=== PATIENT | male | born 1980 | race Caucasian/White ===

== ENCOUNTER → 2020-10-02 16:20 | Outpatient (CLI) | payer OTHER, SELFPAY ==
--- NOTE | ~2020-10-02 | XR_ITS ---
XR knee LT min 4V DATE: 10/02/2020 16:45 INDICATION: Left knee pain TECHNIQUE: [place] and standing AP, PA and lateral views COMPARISON: None FINDINGS: No fracture or dislocation or joint effusion. No periosteal reaction or bone destruction. N o radiopaque intra-articular loose body or chondrocalcinosis. Joint spaces are well preserved. IMPRESSION: Normal examination Reviewed, dictated and finalized at location A. IMPRESSION: Normal examination
== END ==
PROVIDERS: PCP Family Medicine; Visit Provider Physician Assistant
DX: M25.562 Pain in left knee (principal)
CPT/HCPCS: 73564

== ENCOUNTER 2021-11-10 08:01 | Emergency (ER) | payer OTHER, SELFPAY ==
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
[2021-11-10 08:00] VITALS: BP 137/77; PULSE 64; RESP 18; TEMP 36.8; O2SAT 95
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
[2021-11-10] MEDS: ACETAMINOPHEN 500 MG TABLET 1000 MG PO (08:41)
[2021-11-10 10:06] VITALS: RESP 16
== END 2021-11-10 10:08 | disposition home or self-care (01) ==
PROVIDERS: Emergency Provider Emergency Medicine
DX: S46.911A Strain of unspecified muscle, fascia and tendon at shoulder and upper arm level, right arm, initial encounter (principal); M16.12 Unilateral primary osteoarthritis, left hip; V43.52XA Car driver injured in collision with other type car in traffic accident, initial encounter
CPT/HCPCS: 71046; 73030; 73502; 99284; A9270

== ENCOUNTER 2024-02-23 08:17 | Outpatient (CLI) | payer OTHER, SELFPAY ==
[2024-02-23 13:50] LABS: Basophils Percent Auto 0.8 % (0.2-1.2); Eosinophils Absolute Auto 0.1 K/mm3 (0-0.3); Eosinophils Percent Auto 1.1 % (0-4.4); Hematocrit 44.5 % (42.0-52.0); Hemoglobin 14.9 g/dL (14.0-18.0); Immature Granulocyte Absolute 0.02 K/mm3 (0.00-0.031); Immature Granulocyte Percent A 0.4 % (0-0.5); Lymphocytes Absolute Auto 1.74 K/mm3 (0.9-3.2); Lymphocytes Percent Auto 33.3 % (18.3-44.2); Mean Corpuscular HGB Conc 33.5 g/dl (32-36); Mean Corpuscular Hemoglobin 32.6 pg (26-34); Mean Corpuscular Volume 97.4 fl (80-100); Mean Platelet Volume 9.9 fl (7.4-10.4); Monocytes Absolute Auto 0.5 K/mm3 (0.1-0.6); Monocytes Percent Auto 9.6 % (2.6-8.5); Neutrophils Absolute Auto 2.9 K/mm3 (1.3-6.7); Neutrophils Percent Auto 54.8 % (45.5-73.1); Platelet Count Result 205 k/mm3 (150-375); Red Blood Count 4.57 M/mm3 (4.6-6.20); Red Cell Distribution Width 11.8 % (11.5-14.5); White Blood Count 5.2 K/mm3 (4.5-10.0)
[2024-02-23 13:55] LABS: Anion Gap 3 mmol/L (4-12); Blood Urea Nitrogen 19 mg/dL (9-20); Calcium 9.5 mg/dL (8.4-10.2); Carbon Dioxide 27 mmol/L (22-30); Chloride 109 mmol/L (98-107); Cholesterol 306 mg/dL (0-200); Estimated Glomerular Filt Rate > 60; Glucose 94 mg/dL (65-110); HDL Direct 58 mg/dL; Sodium 139 mmol/L (137-145); Triglycerides 109 mg/dL (<150)
[2024-02-23 14:06] LABS: LDL Cholesterol Direct 197 mg/dL
[2024-02-28 10:48] LABS: Testosterone Free 91.5 pg/mL (46.0-224.0)
[2024-03-01 08:23] LABS: Testosterone Total 399 ng/dL (250-1100)
== END 2024-02-23 08:18 | disposition home or self-care (01) ==
LOC: ANHGOSHLAB 08:18
PROVIDERS: PCP Nurse Practitioner Family; Visit Provider Nurse Practitioner Family
DX: G47.00 Insomnia, unspecified (principal); F41.9 Anxiety disorder, unspecified; N52.9 Male erectile dysfunction, unspecified; Z68.29 Body mass index [BMI] 29.0-29.9, adult
CPT/HCPCS: 36415; 80048; 80061; 84402; 84403; 84443; 85025

== ENCOUNTER 2024-03-27 19:42 | Emergency (ER) | payer OTHER, SELFPAY ==
[2024-03-27 19:44] VITALS: BP 164/99; PULSE 42; RESP 15; TEMP 36.1; O2SAT 99
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
[2024-03-27] MEDS: ONDANSETRON HCL ODT 4 MG TABLET PO (20:42)
[2024-03-27] MEDS: LIDOCAINE 1% LOCAL INJ 10 ML VIAL INFILTRATE (20:43)
== END 2024-03-27 21:32 | disposition home or self-care (01) ==
PROVIDERS: Emergency Provider Emergency Medicine; PCP Nurse Practitioner Family
DX: S61.211A Laceration without foreign body of left index finger without damage to nail, initial encounter (principal); W26.0XXA Contact with knife, initial encounter
CPT/HCPCS: 12002; 99283; A9270; J2003

== ENCOUNTER 2024-05-18 11:11 | Emergency (ER) | payer OTHER, SELFPAY ==
--- NOTE | ~2024-05-18 | CT_ITS ---
CT abdomen pelvis w con Ordering provider: Tesfaye Coles MD History: 43 years Male with . Left CVA tenderness . Comparison: None. Technique: CT abdomen and pelvis with IV and without oral contrast. Automated exposure control and it erative reconstruction technique were employed. The dose-length product was 761.57 mGy-cm. 100 mL Omn ipaque 350 was given IV. Findings: VISUALIZED LOWER CHEST: Dependent atelectatic changes. UPPER ABDOMINAL ORGANS: Liver: Fat infiltration. Gallbladder: Normal. Spleen: Normal. Stomach/duodenum: Normal. Pancreas: Normal. Adrenals: Normal. Kidneys: Normal. PELVIC ORGANS: The bladder is slightly underfilled with thickened wall. Evaluation for cystitis advis ed.. BOWEL AND MESENTERY: Colon: No evidence of diverticulitis. Normal appendix. Small Bowel: Slightly thickened wall of the jejunum is seen which may indicate enteritis. Clinical co rrelation advised. No obstruction. Peritoneum/mesentery: No free air or free fluid. No mesenteric lymphadenopathy. RETROPERITONEUM: Mild atheromatous disease of the abdominal aorta. No retroperitoneal lymphadenopat hy. MUSCULOSKELETAL: Superficial soft tissues: Bilateral small fat-containing inguinal hernias. The superficial soft tissu es are normal. Bones: Normal spine. IMPRESSION: 1. No evidence of appendicitis, diverticulitis or intestinal obstruction. 2. Slightly thickened jejunal loops which may indicate enteritis. Clinical correlation advised. 3. Bilateral fat-containing small inguinal hernias. Reviewed, dictated and finalized at location A. IATIVE CARE NURSE IMPRESSION: 1. No evidence of appendicitis, diverticulitis or intestinal obstruction. 2. Slightly thickened jejunal loops which may indicate enteritis. Clinical cor relation advised. 3. Bilateral fat-containing small inguinal hernias.
--- NOTE | ~2024-05-18 | CT_ITS ---
CT thoracic spine wo con Ordering provider: Tesfaye Coles MD History: . Paraspinal thoracic pain . Comparison: None. Technique: CT thoracic spine without contrast. Automated exposure control and iterative reconstructi on technique were employed. The dose-length product was 1169.39 mGy-cm. FINDINGS: VERTEBRAE: Normal height and alignment. No subluxation or visible acute fracture. Mild Degenerative c hanges of the spine. DISC SPACES: Well maintained. PARASPINOUS SOFT TISSUES: Normal. Small blebs are seen in the lungs. IMPRESSION: No acute osseous abnormality of the thoracic spine. Reviewed, dictated and finalized at location A. INING MANAGER
--- OUTSIDE RECORDS SUMMARY | 2024-05-18 11:13 | XMS_ITS | Clinical Summary ---
Author Organization [facility] Address [address] [place] [address] Care Team Providers Care Director Of Product Management Name Role Phone Lazaro Miller MD Primary Care Provider [phone] Allergies Active Allergy Reactions Criticality Noted Date Comments Amoxicillin Penicillins Medications oxyCODONE (ROXICODONE) 5 mg immediate release tabletIndicatio ns:Pain Take 1 tablet (5 mg total) by mouth every 4 (four) hours as needed for pain (not controlled by tylenol/ibuprof en) 12 tablet 2 Active Active Problems Problem Noted Date Diagnosed Date Laceration of left index finger 12/27/2021 Overview (12/27/2021): Added automatically from request for surgery [id number] Benign hypertension 10/13/2014 Overview (06/16/2016): HTN (hypertension), benign Bradycardia 10/13/2014 Overview (06/16/2016): Bradycardia Palpitations 10/13/2014 Overview (06/16/2016): Palpitations Syncope 10/13/2014 Overview (06/16/2016): Syncope Family History Medical History Relation Name Comments Heart disease Maternal Grandmother Heart disease; Diabetes Mother Diabetes mellit us; Prostate cancer Paternal Grandfather Canc er, prostate; Hypertension Paternal Grandmother Hyperte nsion; Stroke Paternal Grandmother Stroke; Relation Name Status Comments Maternal Grandmother Mother Paternal Grandfather Paternal Grandmother Social History Tobacco Use Types Packs/Day Years Used Date Smoking Tobacco: Former Cigarettes Q uit: 2012 Tobacco Cessation:Counseling Given: Not Answered Alcohol Use Standard Drinks/Week Comments Yes 0 (1 standard drink = 0.6 oz pur e alcohol) AUDIT-C Answer Date Recorded Q1: How often do you have a drink containing alc ohol? 2-3 times a week 12/28/2021 Q2: How many drinks containi ng alcohol do you have on a typical day when you are drinking? 5 or 6 12/28/2021 Q3: How often do you have si x or more drinks on one occasion? 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 Gender Identity Not on file Sexual Orientation Not on file Obstetrics History Last Filed Vital Signs Vital Sign Reading Time Taken Comments Blood Pressure 137/89 12/28/2021 12:00 PM CDT Pulse 42 12/28/2021 12:00 PM CDT Temperature 36.4 C (97.5 F) 12/28/2021 12:00 PM CDT Respiratory Rate 12 12/28/2021 12:00 PM CDT Oxygen Saturation 94% 12/28/2021 12:00 PM CDT Inhaled Oxygen Concentration - - Weight 99.8 kg (220 lb) 12/28/2021 9:19 AM CDT Height 182.9 cm (6') 12/28/2021 9:19 AM CDT Body Mass Index 29.84 12/28/2021 9:19 AM CDT Plan of Treatment Health Maintenance Due Date Last Done Comments Depression Screening 1981 Hepatitis C Screening 1981 DTaP/Tdap/Td Vaccine (1 - Tdap) 1992 Varicella Vaccines (1 of 2 - 13+ 2-dose series) 1994 Hepatitis B Screening 11/22/1999 Regular Well Visit/Exam 18-64 11/22/1999 Influenza Vaccine (#1) 2023 HPV Vaccines Aged Out No longer eligi ble based on patient's age to complete this topic Pneumococcal vaccine <65 Aged Out No longer eligible based on patient's age to complete this topic Insurance [employer] Care Teams Director Of Product Management Relationship Specialty Start Date End Date Lazaro Miller MD [address] [place] [address] PCP - General 10/22/14
--- OUTSIDE RECORDS SUMMARY | 2024-05-18 11:13 | XMS_ITS | Referral Summary ---
Author Organization [facility] Address [address] [place] [address] Care Team Providers Care High School English Teacher Name Role Phone Lazaro Miller MD Primary Care Provider [phone] Allergies Active Allergy Reactions Criticality Noted Date [...] (12/27/2021): Added automatically from request for surgery [id number] Benign hypertension 10/13/2014 Overview (06/16/2016): HTN (hypertension), benign Bradycardia 10/13/2014 Overview (06/16/2016): Bradycardia Palpitations 10/13/2014 Overview (06/16/2016): Palpitations Syncope 10/13/2014 Overview (06/16/2016): Syncope Social History Tobacco Use Types Packs/Day Years Used Date Smoking Tobacco: Former Cigarettes Q uit: 2011 Tobacco Cessation:Counseling Given: Not Answered Alcohol Use [...] on file 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 Gender Identity Not on file Sexual Orientation Not on file Last Filed Vital Signs Vital Sign Reading [...] 12/28/2021 9:19 AM CDT Plan of Treatment Not on file Insurance [facility] [employer] H[employer]/PPO Address: [facility] [address] [place] [address] [facility] [employer] H[employer]/PPO Address: [address] [address] [facility] [employer] H[employer]O Address: [address] [address] Care Teams High School English Teacher Relationship Specialty Start Date End Date Lazaro Miller MD [address] [place] [address] PCP - General 10/22/14
--- OUTSIDE RECORDS SUMMARY | 2024-05-18 11:13 | XMS_ITS | Clinical Summary ---
Author Organization [facility] Address [facility] [place] [address] Care Team Providers Care Clinical Practice Consultant Name Role Phone Lake Miller MD Primary Care Provider Allergies Active Allergy Reactions Criticality Noted Date Comments Penicillins Rash Low 12/25/2021 Medications ALPRAZolam (XANAX) 1 MG tablet TAKE 1/2 OR 1 TABLET BY MOUTH EVERY NIGHT AT BEDTIME 2 Active sertraline (ZOLOFT) 50 MG tablet Take 50 mg by mouth nightly at bedtime. at bedtime 2 Active traZODone (DESYREL) 50 MG tablet Take 50 mg by mouth nightly at bedtime. 2 Active methylPREDNISol one, SIMRAN, (MEDROL DOSEPAK) 4 MG tablet Follow package directions 1 each 2 Active montelukast (SINGULAIR) 10 MG tablet Take 1 tablet (10 mg total) by mouth nightly at bedtime. 30 tablet 2 Active fexofenadine (NAN ALLERGY) 180 MG tablet Take 1 tablet (180 mg total) by mouth daily. 30 tablet 2 Active Social History Tobacco Use Types Packs/Day Years Used Date Smoking Tobacco: Never Smokeless Tobacco: Never Sex and Gender Information Value Date Recorded Sex Assigned at Not on file Legal Sex Male 7:52 PM CDT Gender Identity Not on file Sexual Orientation Not on file Last Filed Vital Signs Vital Sign Reading Time Taken Comments Blood Pressure 155/65 12/25/2021 2:21 PM CDT Pulse 52 12/25/2021 2:23 PM CDT Temperature 36.5 C (97.7 F) 12/25/2021 12:08 PM CDT Respiratory Rate 18 12/25/2021 2:23 PM CDT Oxygen Saturation 95% 12/25/2021 2:41 PM CDT Inhaled Oxygen Concentration - - Weight 99.8 kg (220 lb) 12/25/2021 12:08 PM CDT Height 182.9 cm (6') 12/25/2021 12:08 PM CDT Body Mass Index 29.84 12/25/2021 12:08 PM CDT Plan of Treatment Health Maintenance Due Date Last Done Comments Annual Physical 1984 Hepatitis C 11/22/1999 DTaP, Tdap and Td Vaccines ( 1 - Tdap) 2000 Hepatitis B Vaccines (1 of 3 - 19+ 3-dose series) 2000 COVID-19 Vaccine (2023-2 5 season) 2023 Influenza Adult (#1) 2023 HPV Vaccines Aged Out No longer eligi ble based on patient's age to complete this topic Meningococcal B Vaccine Aged Out No l onger eligible based on patient's age to complete this topic Meningococcal Vaccine Aged Out No erica ghislaine eligible based on patient's age to complete this topic Pneumococcal Vaccine: Pediat rics (0 to 5 Years) and At-Risk Patients (6 to 64 Years) Aged Out No longer eligible b ased on patient's age to complete this topic RSV Immunizations Under 20 Months Aged Out No longer eligible based on patient's age to complete this topic Insurance Care Teams Clinical Practice Consultant Relationship Specialty Start Date End Date Lake Miller MD [address] [place] [address] PCP - General FAMILY PRACTICE 12/25/21
[2024-05-18 11:15] VITALS: BP 134/81; PULSE 50; RESP 16; TEMP 36.1; O2SAT 98
--- OUTSIDE RECORDS SUMMARY | 2024-05-18 11:34 | XMS_ITS | Clinical Summary ---
Author Organization [facility] Address [facility] [place] [address] Care Team Providers Care Aircraft Cleaning Supervisor Name Role Phone Lake Miller MD Primary Care Provider [phone] Allergies Active Allergy Reactions Criticality Noted Date [...] to complete this topic Insurance Care Teams Aircraft Cleaning Supervisor Relationship Specialty Start Date End Date Lake Miller MD [address] [place] [address] PCP - General FAMILY PRACTICE 12/25/21
--- OUTSIDE RECORDS SUMMARY | 2024-05-18 11:34 | XMS_ITS | Referral Summary ---
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 [employer] [employer] [facility] HMO/PPO Address: [facility] [address] [place] [address] [employer] [facility] H[employer]/PPO Address: [address] [address] [employer] [facility] H[employer]/PPO Address: [address] [address] Care Teams Aircraft Parts Assembler Relationship Specialty Start Date End Date Lazaro Miller MD [address] [place] [address] PCP - General 10/22/14
--- OUTSIDE RECORDS SUMMARY | 2024-05-18 11:34 | XMS_ITS | Clinical Summary ---
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
--- NOTE | 2024-05-18 13:04 | ED.GENADULT ---
HPI - General Adult General Chief complaint: Back Pain/Injury Stated complaint: back pain Time Seen by Provider: 05/18/24 11:22 History of Present Illness HPI narrative: 43-year-old male presents to the emergency department for acute onset left CVA pain. Patient states he had had some shoulder pain earlier in the week but patient sneezed and had acute onset left CVA pain. States the pain is worsened with movement. Patient does have reproducible tenderness to his left paraspinal muscles. Patient denies any worsening of the pain with taking a deep breath. Related Data Home Medications ?Medication ?Instructions ?Recorded ?Confirmed ?Last Taken ?Type omeprazole 20 mg capsule,delayed 20 mg PO DAILY 10/02/20 04/01/24 Unknown History release Allergies Allergy/AdvReac Type Severity Reaction Status Date / Time amoxicillin Allergy Unknown rash Verified 05/18/24 11:27 penicillamine Allergy Unknown Skin Verified 05/18/24 11:27 Reaction Penicillins Allergy Unknown rash Verified 05/18/24 11:27 Review of Systems Review of Systems: All systems reviewed & are unremarkable except as noted in HPI and below PMFSH Past Medical History Medical History Right rotator cuff tendinitis Leg abscess Arthralgia of right acromioclavicular joint Family History Family History Father Hypertension Grandparent Hypertension Family history of cardiovascular disease Cerebrovascular accident Malignant neoplasm of prostate Other Diabetes mellitus Social History Social History Smoking status: Never smoker Smokeless tobacco user: chewing tobacco Second hand tobacco smoke exposure: No Alcohol intake: current Drinks per week: 6 Substance use type: does not use Lack of Transportation: No Lack of Food: Never True Current Housing: I Have Housing Concerned About Future Housing: No Difficulty Paying Gas/Electric Bills: No Difficulty Paying for Meds: No Currently Unemployed: No Difficulty w/ Childcare or Family Care: Decline to Answer Exam Narrative: APPEARANCE: Well appearing, no pain, no distress, well-nourished. HEAD: normocephalic, atraumatic. EYES: PERRLA/EOMI, conjunctivae clear. NOSE: Normal no drainage EARS:TMS clear with good light reflex. THROAT: Pharynx clear, no exudate. NECK: Supple. No adenopathy, no masses. RESPIRATORY: Airway patent, respirations nonlabored. Clear to auscultation bilaterally, no rales, rhonchi, wheezing. CARDIOVASCULAR: Regular rate and rhythm without murmurs rubs or gallops. ABDOMINAL: Soft, nontender, nondistended, normal bowel sounds MUSCULOSKELETAL: Left-sided paraspinal muscle tenderness to palpation, left CVA tenderness to palpation and left upper quadrant tenderness to palpation. NEURO: Alert. Cranial nerves II through XII intact. Good gait. Good coordination SKIN: Warm, dry. Normal Color Course Vital Signs Vital signs: Vital Signs Temperature 97 F L 05/18/24 11:15 Pulse Rate 50 L 05/18/24 11:15 Respiratory Rate 16 05/18/24 11:15 Blood Pressure 134/81 05/18/24 11:15 Pulse Oximetry 98 05/18/24 11:15 Temperature 97 F L 05/18/24 11:15 Pulse Rate 52 L 05/18/24 16:08 Respiratory Rate 18 05/18/24 16:08 Blood Pressure 114/53 L 05/18/24 16:08 Pulse Oximetry 98 05/18/24 16:08 Medical Decision Making MDM Narrative Medical decision making narrative: 43-year-old male present to the emergency department for evaluation for left-sided back pain. Patient states the pain occurred while he was sneezing. Patient does have reproducible left paraspinal muscular tenderness to palpation but patient also does have some left-sided CVA tenderness. Patient is currently afebrile with no leukocytosis hemoglobin of 14.5. INR 1.1, patient has no acute abnormalities on his CMP including normal T bili AST ALT alk phos. Urine was negative for infection and negative for blood. CT abdomen pelvis showed possible enteritis but this does not correlate with the patient's symptoms. Thoracic spine showed no acute abnormality. Patient did feel improved with treatment. Patient was discharged home with naproxen, Flexeril and [place] for additional pain control. Patient and family were educated on reasons to return to the emergency department. All questions concerns were addressed. Differential Diagnosis Differential Diagnosis: Splenic injury, rib fracture, paraspinal muscle injury, thoracic spine injury Vital Signs Vital Signs: Vital Signs Temperature 97 F L 05/18/24 11:15 Pulse Rate 50 L 05/18/24 11:15 Respiratory Rate 16 05/18/24 11:15 Blood Pressure 134/81 05/18/24 11:15 Pulse Oximetry 98 05/18/24 11:15 Temperature 97 F L 05/18/24 11:15 Pulse Rate 52 L 05/18/24 16:08 Respiratory Rate 18 05/18/24 16:08 Blood Pressure 114/53 L 05/18/24 16:08 Pulse Oximetry 98 05/18/24 16:08 Lab Data Lab results reviewed: Yes I reviewed the patient's lab results. 05/18/24 13:15 05/18/24 13:15 Labs: Lab Results 05/18/24 05/18/24 Range/Units 13:15 13:33 WBC 5.9 (4.5-10.0) K/mm3 RBC 4.44 L (4.6-6.20) M/mm3 Hgb 14.5 (14.0-18.0) g/dL Hct 42.7 (42.0-52.0) % MCV 96.2 (80-100) fl MCH 32.7 (26-34) pg MCHC 34.0 (32-36) g/dl RDW 11.7 (11.5-14.5) % Plt Count 200 (150-375) k/mm3 MPV 9.5 (7.4-10.4) fl Immature Gran % (Auto) 0.3 (0-0.5) % Neut % (Auto) 58.9 (45.5-73.1) % Lymph % (Auto) 31.1 (18.3-44.2) % [place] % (Auto) 8.5 (2.6-8.5) % Eos % (Auto) 0.5 (0-4.4) % Baso % (Auto) 0.7 (0.2-1.2) % Lymph # (Auto) 1.82 (0.9-3.2) K/mm3 [place] # (Auto) 0.5 (0.1-0.6) K/mm3 Eos # (Auto) 0.0 (0-0.3) K/mm3 Baso # (Auto) 0.0 (0.0-0.1) K/mm3 Abs Immat Gran (auto) 0.02 (0.00-0.031) K/mm3 Absolute Neuts (auto) 3.5 (1.3-6.7) K/mm3 Absolute Nucleated RBC 0.000 (0.0-0.012) K/mm3 Nucleated RBC % 0.0 (0.0-0.2) % PT 14.1 (11.1-14.7) Seconds INR 1.1 APTT 27.4 (22.3-36.8) Seconds Sodium 140 (137-145) mmol/L Potassium 4.5 (3.4-5.0) mmol/L Chloride 106 (98-107) mmol/L Carbon Dioxide 24 (22-30) mmol/L Anion Gap 10 (4-12) mmol/L BUN 18 (9-20) mg/dL Creatinine 0.98 (0.7-1.3) mg/dL Estim Creat Clear Calc 110 ml/min Estimated GFR > 60 (59 - ) Glucose 109 (65-110) mg/dL Calcium 9.4 (8.4-10.2) mg/dL Total Bilirubin 0.5 (0.2-1.3) mg/dL AST 27 (17-59) U/L ALT 37 (6-50) U/L Alkaline Phosphatase 57 (38-126) U/L Total Protein 7.0 (6.3-8.2) g/dL Albumin 4.3 (3.5-5.1) g/dL Urine Color Yellow (Yellow) Urine Appearance Clear (Clear) Urine pH 6.5 (5.0-9.0) Ur Specific [place] 1.019 (1.001-1.035) Urine Protein Negative (Negative) mg/dL Urine Glucose (UA) Negative (Negative) mg/dL Urine Ketones Negative (Negative) mg/dL Ur Blood (Man) Negative (Negative) Urine Nitrate Negative (Negative) Urine Bilirubin Negative (Negative) Urine Urobilinogen 0.2 (<2.0) mg/dL Leukocyte Esterase Rfl Negative (Negative) MICHAEL/UL Imaging Data Radiologist's impression: Impressions Thoracic Spine CT 05/18/24 14:32 IMPRESSION: No acute osseous abnormality of the thoracic spine. Abdomen/Pelvis CT 05/18/24 14:41 IMPRESSION: 1. No evidence of appendicitis, diverticulitis or intestinal obstruction. 2. Slightly thickened jejunal loops which may indicate enteritis. Clinical correlation advised. 3. Bilateral fat-containing small inguinal hernias. Discharge Plan Discharge Clinical Impression: Back strain, Rib injury Patient Disposition: Home, Self-Care Condition: Stable Instructions: Antibiotic Form, Back Pain (ED) Additional Instructions: Naproxen for pain control as directed. Flexeril for muscle spasm. Moreland as needed for additional pain control. Have close follow-up with your primary care physician. If you have any worsening symptoms and please call or return to the emergency department. Patient Language: Togolese Prescriptions: New naproxen [Naprosyn] 500 mg tablet 500 mg PO BID 7 Days Qty: 14 0RF cyclobenzaprine 10 mg tablet 10 mg PO BID PRN (Reason: muscle spasm) Qty: 14 0RF hydrocodone-acetaminophen 5-325 mg tablet 1 tablet PO Q12H PRN (Reason: pain) 5 Days Qty: 10 0RF No Action alprazolam 1 mg tablet 1 mg PO QHS Qty: 30 1RF albuterol sulfate [Ventolin HFA] 90 mcg/actuation HFA aerosol inhaler 2 inh inhalation Q4H PRN (Reason: shortness of breath or wheezing) Qty: 6.7 1RF omeprazole 20 mg capsule,delayed release(DR/EC) 20 mg PO DAILY Drysol Dab-O-Matic 20 % solution 1 applic topical 2XW PRN (Reason: hyperhidrosis) Qty: 60 0RF azithromycin 250 mg tablet See Rx Instructions PO .COMPLEX Qty: 6 0RF Rx Instructions: For 250 mg dose pack: take 500 mg today (day 1), then 250 mg for 4 days (days 2-5) PO sertraline 50 mg tablet See Rx Instructions .ROUTE .COMPLEX Qty: 90 1RF Dose Instruction: TAKE 1 TABLET BY MOUTH EVERY NIGHT AT BEDTIME Rx Instructions: TAKE 1 TABLET BY MOUTH EVERY NIGHT AT BEDTIME tadalafil 2.5 mg tablet 2.5 mg PO DAILY PRN (Reason: sexual activity) Qty: 30 2RF Rx Instructions: do not use more than 1 dose per 24hrs trazodone 50 mg tablet 50 mg PO QHS Qty: 90 3RF Follow-up/Referrals: Sonya Gonzalez, EMPLOYMENT EVALUATOR/CASE MANAGER-C [Primary Care Provider] -
[2024-05-18] MEDS: CYCLOBENZAPRINE HCL 10 MG TABLET PO (13:14)
[2024-05-18] MEDS: HYDROmorphone HCL INJ (*CRX) 1 MG/ML SYR IV PUSH (13:14)
[2024-05-18 13:25] LABS: Basophils Percent Auto 0.7 % (0.2-1.2); Eosinophils Percent Auto 0.5 % (0-4.4); Hematocrit 42.7 % (42.0-52.0); Hemoglobin 14.5 g/dL (14.0-18.0); Immature Granulocyte Absolute 0.02 K/mm3 (0.00-0.031); Immature Granulocyte Percent A 0.3 % (0-0.5); Lymphocytes Absolute Auto 1.82 K/mm3 (0.9-3.2); Lymphocytes Percent Auto 31.1 % (18.3-44.2); Mean Corpuscular Hemoglobin 32.7 pg (26-34); Mean Corpuscular Volume 96.2 fl (80-100); Mean Platelet Volume 9.5 fl (7.4-10.4); Monocytes Absolute Auto 0.5 K/mm3 (0.1-0.6); Monocytes Percent Auto 8.5 % (2.6-8.5); Neutrophils Absolute Auto 3.5 K/mm3 (1.3-6.7); Neutrophils Percent Auto 58.9 % (45.5-73.1); Platelet Count Result 200 k/mm3 (150-375); Red Blood Count 4.44 M/mm3 (4.6-6.20); Red Cell Distribution Width 11.7 % (11.5-14.5); White Blood Count 5.9 K/mm3 (4.5-10.0)
[2024-05-18 13:38] LABS: Alanine Aminotransferase 37 U/L (6-50); Albumin Level 4.3 g/dL (3.5-5.1); Alkaline Phosphatase 57 U/L (38-126); Anion Gap 10 mmol/L (4-12); Aspartate Amino Transferase 27 U/L (17-59); Bilirubin,Total 0.5 mg/dL (0.2-1.3); Blood Urea Nitrogen 18 mg/dL (9-20); Calcium 9.4 mg/dL (8.4-10.2); Carbon Dioxide 24 mmol/L (22-30); Chloride 106 mmol/L (98-107); Estimated CRCL calculation 110 ml/min; Estimated Glomerular Filt Rate > 60; Glucose 109 mg/dL (65-110); Potassium 4.5 mmol/L (3.4-5.0); Sodium 140 mmol/L (137-145)
[2024-05-18 13:39] LABS: Add Urine Microscopic? NO; Appearance Urine Clear (Clear); Bilirubin Urine Negative (Negative); Blood Urine Negative (Negative); Color Urine Yellow (Yellow); Glucose Urine UA Negative (Negative); Ketones Urine Negative (Negative); Leukocyte Esterase Ur Negative LEU/UL (Negative); Nitrate Urine Negative (Negative); Protein Urine Negative (Negative); Specific Grav Ur 1.019 (1.001-1.035); Urobilinogen Urine 0.2 mg/dL (<2.0); pH Urine 6.5 (5.0-9.0)
[2024-05-18 13:40] LABS: INR 1.1; Prothrombin Time 14.1 Seconds (11.1-14.7)
[2024-05-18 13:41] LABS: Partial Thromboplastin Time 27.4 Seconds (22.3-36.8)
[2024-05-18] MEDS: HYDROcodone/acetaminophen (*CRX) 5-325 MG TABLET 1 TAB PO (16:02)
[2024-05-18 16:08] VITALS: BP 114/53; PULSE 52; RESP 18; O2SAT 98
== END 2024-05-18 16:10 | disposition home or self-care (01) ==
PROVIDERS: Emergency Provider Emergency Medicine; PCP Nurse Practitioner Family
DX: S29.012A Strain of muscle and tendon of back wall of thorax, initial encounter (principal); S29.9XXA Unspecified injury of thorax, initial encounter; F17.220 Nicotine dependence, chewing tobacco, uncomplicated; K40.20 Bilateral inguinal hernia, without obstruction or gangrene, not specified as recurrent; X50.9XXA Other and unspecified overexertion or strenuous movements or postures, initial encounter
CPT/HCPCS: 36415; 72128; 74177; 80053; 81003; 85025; 85610; 85730; 96374; 99284; A9270; J1171; Q9967